=== PATIENT | female | born 1985 | race Two or more races ===

== ENCOUNTER 2024-10-07 03:43 | Emergency (ER) | payer MEDICAID, SELFPAY ==
[2024-10-07 03:45] VITALS: BMI 34.3
[2024-10-07 03:57] VITALS: BP 184/106; PULSE 99; RESP 17; TEMP 37.1; O2SAT 96
--- NOTE | 2024-10-07 04:09 | XR_ITS ---
Examination: CT abdomen and pelvis without contrast. Coronal 3-D reconstructions. Sagittal 2-D reconstructions. Date and time of exam:October 07, 2024 0734 hours INDICATIONS: Epigastric pain radiating to the right upper abdomen beginning 2 days ago COMPARISON: November 10, 2015 CTDI: vol (mGy): 19.9 DLP: (mGycm): 1179 Technique: Axial images of the abdomen have been obtained, 3 mm slice thickness Intravenous contrast material has not been administered. Low dose protocols were performed. One or more of the following dose reduction techniques were used; automated exposure control, adjustment of the mA and/or KV according to patient size, use of iterative reconstruction technique. Findings: No focal liver or splenic lesion Absent gallbladder No pancreatic mass No renal or ureteral calculi, no hydronephrosis Stable 16 mm mass with calcified rim pericecal Normal appendix Acute diverticulitis distal descending colon and sigmoid colon No peridiverticular abscess No pelvic mass Bladder intact IMPRESSION: Acute diverticulitis distal descending colon and sigmoid colon, no peridiverticular abscess
--- NOTE | 2024-10-07 04:15 | EKG_ITS ---
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
--- NOTE | 2024-10-07 04:15 | PD.EDRME ---
Rapid Medical Screening Exam RME Arrival date/time: 10/07/24 03:43 Chief Complaint: Abdominal Pain Time Seen by Provider: 10/07/24 03:54 Vital signs: Vital Signs Temperature 98.8 F 10/07/24 03:57 Pulse Rate 99 10/07/24 03:57 Respiratory Rate 17 10/07/24 03:57 Blood Pressure 184/106 H 10/07/24 03:57 Pulse Oximetry (%) 96 10/07/24 03:57 Oxygen Delivery Method Room Air 10/07/24 03:57 Vital signs reviewed by provider: Yes RME Narrative: 31-year-old female with remote history of cholecystitis presents for evaluation of sharp, constant, right upper quadrant pain x 2 days. Patient endorses x 1 episode of diarrhea and subjective fever.
[2024-10-07] MEDS: MORPHINE SULF INJ 10 MG/ML VIAL 4 MG IVP ×2 (04:54→13:03)
[2024-10-07] MEDS: SODIUM CHLORIDE 0.9% 1000 ML 1,000 ML 999 ML IV (04:55)
[2024-10-07 05:02] VITALS: BP 132/82; PULSE 98; RESP 19; TEMP 36.7; O2SAT 99
[2024-10-07 05:09] LABS: Basophils % (Auto) 0 % (0-2.5); Eosinophils # (Auto) 0.1 Thou/mm3 (0.0-0.5); Eosinophils % (Auto) 1 % (0-10); Hematocrit 35.3 % (36.0-46.0); Hemoglobin 11.2 g/dL (12.0-16.0); Immature Granulocytes % (Auto) 0 % (0-0); Immature Granulocytes Auto 0.04 Thou/mm3 (0.00-0.00); Lymphocytes # (Auto) 2.3 Thou/mm3 (1.0-4.8); Lymphocytes % (Auto) 20 % (10-50); Mean Corpuscular HGB Conc 31.7 g/dl (31.0-37.0); Mean Corpuscular Hemoglobin 26.2 pg (25.0-35.0); Mean Corpuscular Volume 83 fL (80-100); Monocytes # (Auto) 0.7 Thou/mm3 (0.0-0.8); Monocytes % (Auto) 6 % (0-12); Neutrophils # (Auto) 8.5 Thou/mm3 (1.8-7.7); Neutrophils % (Auto) 73 % (37-80); Nucleated Red Blood Cell % 0 /100 WBC (0); Platelet Count 335 Thou/mm3 (140-440); RDW Standard Deviation 43.1 fL (36.4-46.3); Red Blood Count 4.27 Miln/mm3 (4.00-5.20); White Blood Count 11.7 Thou/mm3 (3.6-11.0)
--- NOTE | 2024-10-07 05:23 | EDNOTE_ITS ---
ED Abdominal Pain RME/HPI General Chief Complaint: Abdominal Pain Stated complaint: LOWER ABD PAIN RADIATING TO UPPER ABD Time seen by provider: 10/07/24 03:54 Arrival date/time: 10/07/24 03:43 Limitations: no limitations RME / HPI RME / HPI narrative: 31-year-old female with remote history of cholecystitis presents for evaluation of sharp, constant, right upper quadrant pain x 2 days. Patient endorses x 1 episode of diarrhea and subjective fever. Patient endorses intermittent right sided chest wall pain and shortness of breath. Patient reports that the onset of her symptoms was spontaneous. Denies postprandial worsening of symptoms. Denies history of similar symptoms. Denies known sick contacts and recent travel. LNMP x1 month ago. Related Data Previous Rx's ?Medication ?Instructions ?Recorded albuterol sulfate 90 mcg/actuation 2 puff inhalation Q ID #8.5 grams 04/06/21 aerosol inhaler azithromycin 250 mg tablet See Rx Instructions PO .COM PLEX #6 04/06/21 tabs albuterol sulfate 90 mcg/actuation 2 puff inhalation Q ID PRN 05/19/22 aerosol inhaler shortness of breath or wheez ing #8.5 grams albuterol sulfate 90 mcg/actuation 2 inh inhalation Q6 H PRN shortness 07/17/23 breath activated powder inhaler of breath or wheezing #1 ea Allergies Allergy/AdvReac Type Severity Reaction Status Date / Time No Known Allergies Allergy Verified 10/07/24 03:45 Review of Systems Constitutional Constitutional: Denies chills, Denies excessive sweating, Denies fatigue, Denies fever(s) and Denies headache(s) ENT Ears, Nose, Mouth, and Throat: Denies dizziness, Denies headache(s) and Denies neck pain Cardiovascular Cardiovascular: Denies chest pain, Denies diaphoresis and Denies dyspnea Respiratory Respiratory: Denies cough, Denies dyspnea and Denies wheezing Gastrointestinal Gastrointestinal: Reports abdominal pain, Denies coffee ground emesis, Denies constipation, Reports diarrhea, Denies hematochezia, Denies melena, Denies nausea and Denies vomiting Genitourinary Genitourinary: Denies abnormal vaginal bleeding Musculoskeletal Musculoskeletal: Denies back pain and Denies neck pain Integumentary/Breasts Skin/Breast: Denies rash Neurologic Neurologic: Denies dizziness and Denies headache(s) Endocrine Endocrine: Denies excessive sweating and Denies fatigue Allergic/Immunologic Allergic/Immunologic: Denies wheezing Past Medical History Past Medical History CARDIAC: Negative Congestive Heart Failure RESPIRATORY: Negative Chronic Obstructive Pulmonary Disease (COPD) GENITOURINARY: Negative Renal Disease ENDOCRINE: Negative Diabetes Mellitus Type 1 or Diabetes Mellitus Type 2 PSYCHO/SOCIAL: Positive Anxiety (PANIC DISORDER) Social History SMOKING STATUS: Never smoker ED Exam General Limitations: Present no limitations General appearance: Present in distress Head Head exam: Present atraumatic and normocephalic Eye Eye exam: Present normal appearance and EOMI; Absent scleral icterus ENT ENT exam: Present normal oropharynx and mucous membranes moist Neck Neck exam: Present normal inspection and full ROM Chest Chest inspection: Present normal inspection and symmetric chest wall rise Respiratory Respiratory exam: Present normal lung sounds bilaterally; Absent respiratory distress or wheezes Cardiovascular Cardiovascular exam: Present tachycardia Abdominal Exam Abdominal exam: Present soft, tenderness and guarding; Absent distention, rebound or rigidity Abdominal tenderness: Present diffuse Rectal Exam Rectal exam: Present deferred Extremities Exam Extremities exam: Present normal inspection and full ROM Back Exam Back exam: Present normal inspection and full ROM Psychiatric Psychiatric exam: Present anxious Skin Skin exam: Present warm, dry and normal color Course Quality Measures none Orders Category Date Time Status EKG (ED ONLY) *Do not use* NOW Care 10/07/24 04:15 Completed Insert IV NOW Care 10/07/24 04:09 Active Straight [In and Out Catheter] X1 Care 10/07/24 05:[address] abdomen pelvis wo con Stat Exams 10/07/24 04:09 Ordered EKG (ED Only) Stat Exams 10/07/24 04:15 Draft US gall bladder Stat Exams 10/07/24 05:39 Ordered US transvaginal Stat Exams 10/07/24 05:39 Ordered CBC Stat Lab 10/07/24 04:39 Completed CMP [Comprehensive Metabolic Panel] Stat Lab 10/07/24 04:39 Completed HCG Qualitative,Urine Stat Lab 10/07/24 04:09 Ordered HCG,Qualitative Serum Stat Lab 10/07/24 05:40 Ordered Lipase Stat Lab 10/07/24 04:39 Completed Troponin I Stat Lab 10/07/24 04:39 Completed UA, C/S IF [Urinalysis, C/S if Indicated] Stat Lab 10/07/24 04:09 Ordered Morphine Inj Med 10/07/24 04:12 Discontinued 4 mg IVP X1 ONE Sodium Chloride 0.9% 1000 ml [Ns] 1,000 ml Med 10/07/24 04:47 Active IV 999 mls/hr Reevaluation(s) Reevaluation #1: At 535 the care of this patient was transferred to Dr. Hassan. Pending CT and lab reports at the time of transfer of care. Vital Signs Vital signs: Vital Signs Temperature 98.8 F 10/07/24 03:57 Pulse Rate 99 10/07/24 03:57 Respiratory Rate 17 10/07/24 03:57 Blood Pressure 184/106 H 10/07/24 03:57 Pulse Oximetry (%) 96 10/07/24 03:57 Oxygen Delivery Method Room Air 10/07/24 03:57 Pulse ox 98%. Abdominal Pain MDM Patient data External records reviewed:: [facility] previous records Clinical information provided by:: patient and family Social determinants that could affect healthcare access:: mental health Patient has the following chronic illnesses:: Anxiety, depression. How is presenting disease/condition affected by chronic disease/condition?: uneffected by Evaluation data The following diagnostics were reviewed and interpreted by me:: lab results and radiology exam(s) Lab and/or radiology exams considered but not ordered:: Workup ordered Interpretation Summary: Pending results of transfer of care. Medications / Prescriptions Medications or Prescriptions considered but not ordered:: Rx given. Medication administrations:: Medication Administration History Sodium Chloride (Ns) 1,000 mls @ 999 mls/hr IV .Q1H1M ONE Stop: 10/07/24 05:47 Last Admin: 10/07/24 04:55 Dose: 999 mls/hr Documented By: JOB Discontinued Medications Morphine Sulfate (Morphine Sulf Inj 10 Mg/Ml Vial) 4 mg IVP X1 ONE Stop: 10/07/24 04:13 Last Admin: 10/07/24 04:54 Dose: 4 mg Documented By: EE Rx given. Consultations Consultation(s) initiated? (list below): No Diagnosis Differential diagnosis abdominal pain: abdominal pain, acute appendicitis, diverticulitis, gastroenteritis, pancreatitis and small bowel obstruction Most likely diagnosis given after review of the tests above:: abdominal pain Admission Indicated Admission indicated?: not indicated Admission Request Was there a request for admission?: No Disposition Plan Disposition Plan: other (specify) (Transfer of care to Dr. Hassan at 0535. ) Discharge Plan Plan Patient Disposition: Admit Acute Care w/in Hospital Disposition Comment: pt care transferred Dr. Hassan at 0535 on 10/07/2024 Prescriptions/Referrals Prescriptions/Med Rec: No Action azithromycin 250 mg tablet See Rx Instructions .ROUTE .COMPLEX Qty: 6 0RF Rx Instructions: take 500 mg today (day 1), then 250 mg for 4 days (days 2-5) albuterol sulfate 90 mcg/actuation HFA aerosol inhaler 2 puff inhalation QID Qty: 8.5 0RF albuterol sulfate 90 mcg/actuation HFA aerosol inhaler 2 puff inhalation QID PRN (Reason: shortness of breath or wheezing) Qty: 8.5 0RF albuterol sulfate 90 mcg/actuation aerosol powdr breath activated 2 inh inhalation Q6H PRN (Reason: shortness of breath or wheezing) Qty: 1 0RF Referrals: Jefry Guevara PA-C [Primary Care Provider] - In 1 week Problem List Clinical Impression: Abdominal pain Patient/Caregiver Discharge Instructions Education Materials: Abdominal Pain Print Language: Bengali Stand Alone Forms: Edith Award Info., Patient Portal Info Letter Attestation Attestation At 6 AM , the care of the patient was transferred to Dr. Araiza with diagnostics pending. Mahendra Hassan MD
[2024-10-07 05:31] LABS: Alanine Aminotransferase 12 U/L (10-49); Albumin, Serum 4.3 gm/dL (3.5-5.0); Albumin/Globulin Ratio 1.4 (1.2-2.2); Alkaline Phosphatase 105 U/L (46-116); Anion Gap 9 (7-16); Aspartate Amino Transferase 13 U/L (0-34); BUN/Creatinine Ratio 16 Ratio (12-20); Bilirubin,Total 0.5 mg/dL (0.3-1.2); Blood Urea Nitrogen 13 mg/dL (9-23); Calcium 9.3 mg/dL (8.3-10.6); Calcium (Corrected) 9.3 mg/dL (8.5-10.1); Carbon Dioxide 25.5 mMol/L (20.0-31.0); Chloride 103 mMol/L (98-107); Creatinine (Component) 0.8 mg/dL (0.6-1.3); Glucose 104 mg/dL (74-106); Lipase 35 U/L (12-53); Osmolality,Calculated 273 (275-295); Potassium 3.9 mMol/L (3.4-5.1); Sodium 137 mMol/L (136-145); Total Protein 7.3 gm/dL (5.7-8.2); Troponin I < 0.002 ng/mL (0.0-0.045); eGFR > 60 See Note
--- NOTE | 2024-10-07 05:39 | XR_ITS ---
Examination: Abdomen sonogram, Limited Date and time of exam: October 17 0808 hours INDICATIONS: Right upper abdominal pain beginning 2 days ago Technique: Real-time springer scale transabdominal sonographic images of the upper abdomen obtained. Findings: Absent gallbladder Normal common bile duct 0.5 cm Pancreatic head 2.4 cm Liver 18.8 cm fatty infiltration Normal hepatopedal portal venous flow Patent IVC IMPRESSION: Absent gallbladder. Normal common bile duct Hepatomegaly, fatty liver
--- NOTE | 2024-10-07 06:09 | EDNOTE_ITS ---
Emergency Room Addendum <Yasmeen Carrero - Last Filed: 10/07/24 12:33> Addendum Narrative: 0600: Care assumed from Dr. Hassan, the previous shift emergency physician. Past medical, surgical, social and family history reviewed. Vitals and home medications reviewed. I will assume the care of the patient at this time. Please refer to the emergency department record for history and examination from initial visit.? Physical exam by me shows patient under no acute distress at this time. Reviewed CT images and agree with radiologist interpretation. Cipro, Flagyl IV ordered. 1215: Patient remains clinically stable throughout the emergency department visit. Re-assessment at the time of disposition demonstrates that the patient is in no acute distress. We reviewed all the results, analysis, and treatment plans. Patient is amenable to discharge. Strict return precautions were outlin ed. Patient was discharged in stable condition. Diagnoses: -Abdominal pain -Acute diverticulitis RADIOLOGY Procedure(s): CT abdomen pelvis wo [facility] Accession Number(s): [id number] cc: Jefry Guevara PA-C; Nikos Lopez PA-C; Arjun Buchanan MD~ Examination: CT abdomen and pelvis without contrast. Coronal 3-D reconstructions. Sagittal 2-D reconstructions. Date and time of exam:October 07, 2024 0734 hours INDICATIONS: Epigastric pain radiating to the right upper abdomen beginning 2 days ago COMPARISON: November 10, 2015 CTDI: vol (mGy): 19.9 DLP: (mGycm): 1179 Technique: Axial images of the abdomen have been obtained, 3 mm slice thickness Intravenous contrast material has not been administered. Low dose protocols were performed. One or more of the following dose reduction techniques were used; automated exposure control, adjustment of the mA and/or KV according to patient size, use of iterative reconstruction technique. Findings: No focal liver or splenic lesion Absent gallbladder No pancreatic mass No renal or ureteral calculi, no hydronephrosis Stable 16 mm mass with calcified rim pericecal Normal appendix Acute diverticulitis distal descending colon and sigmoid colon No peridiverticular abscess No pelvic mass Bladder intact IMPRESSION: Acute diverticulitis distal descending colon and sigmoid colon, no peridiverticular abscess Dictated By: Arjun Buchanan MD <Velvet Araiza MD - Last Filed: 10/07/24 10:43> Addendum Narrative: 0600: Care assumed from Dr. Hassan, the previous shift emergency physician. Past medical, surgical, social and family history reviewed. Vitals and home medications reviewed. I will assume the care of the patient at this time. Please refer to the emergency department record for history and examination from initial visit.? Physical exam by me shows patient under no acute distress at this time. Reviewed CT images and agree with radiologist interpretation Dhara Yoon IV ordered RADIOLOGY Procedure(s): CT abdomen pelvis wo [facility] Accession Number(s): [id number] cc: Jefry Guevara PA-C; Nikos Lopez PA-C; Arjun Buchanan MD~ Examination: CT abdomen and pelvis without contrast. Coronal 3-D reconstructions. Sagittal 2-D reconstructions. Date and time of exam:October 07, 2024 0734 hours INDICATIONS: Epigastric pain radiating to the right upper abdomen beginning 2 days ago COMPARISON: November 10, 2015 CTDI: vol (mGy): 19.9 DLP: (mGycm): 1179 Technique: Axial images of the abdomen have been obtained, 3 mm slice thickness Intravenous contrast material has not been administered. Low dose protocols were performed. One or more of the following dose reduction techniques were used; automated exposure control, adjustment of the mA and/or KV according to patient size, use of iterative reconstruction technique. Findings: No focal liver or splenic lesion Absent gallbladder No pancreatic mass No renal or ureteral calculi, no hydronephrosis Stable 16 mm mass with calcified rim pericecal Normal appendix Acute diverticulitis distal descending colon and sigmoid colon No peridiverticular abscess No pelvic mass Bladder intact
[2024-10-07 06:19] LABS: HCG,Qualitative Serum Negative
[2024-10-07 07:22] LABS: Collection Type, Urine Clean Catch
[2024-10-07 07:49] LABS: Bilirubin,Urine Negative (Negative); Blood,Urine Trace (Negative); Clarity,Urine Turbid (Clear/Hazy); Color,Urine Yellow (Lt Yel-Yel); Culture Indicated,Urine Yes; Glucose, Urine Negative (Negative); Hyaline Casts,Urine < 1 /hpf (0-1); Ketones,Urine Negative (Negative); Leukocyte Esterase,Urine Positive (Negative); Nitrite,Urine Negative (Negative); PH,Urine 5.5 (5.0-7.0); Protein,Urine Trace (Neg - Trace); RBC,Urine 49 /hpf (0-3); Specific Gravity,Urine 1.032 (1.001-1.035); Squamous Epithelial Cell,Urine 7 /hpf (0-5); Urobilinogen,Urine Negative mg/dL (0.0-1.0); WBC,Urine 38 /hpf (0-5)
[2024-10-07 07:55] VITALS: BP 134/91; PULSE 90; RESP 18; TEMP 36.7; O2SAT 98
[2024-10-07 07:59] LABS: HCG Qualitative,Urine Negative
--- NOTE | 2024-10-07 08:06 | XR_ITS ---
Examination: Pelvic ultrasound, transabdominal, complete Technique: Transabdominal ultrasound of the pelvis performed using grayscale imaging Date and time of exam: October 07, 2024 0813 hours INDICATIONS: Pelvic pain beginning 2 days ago FINDINGS: Uterus 10.3 cm endometrial stripe 1.6 cm No uterine mass or intrauterine gestation Right ovary 2.9 cm arterial flow Doppler venous obscured by bowel gas IMPRESSION: No uterine mass or intrauterine gestation
[2024-10-07 10:01] VITALS: BP 118/79; PULSE 87; RESP 18; TEMP 36.6; O2SAT 97
[2024-10-07 12:00] VITALS: BP 120/80; PULSE 80; RESP 18; TEMP 36.6; O2SAT 95
[2024-10-07] MEDS: metroNIDAZOLE/NS 500 MG IVPB 500 MG/100 ML BAG 200 MG IV (12:06)
[2024-10-07] MEDS: HYDROcodone/APAP 5/325 TABLET 1 TAB PO (12:06)
[2024-10-07] MEDS: CIPROFLOXACIN/D5w 400 MG IVPB 400 MG/200 ML BAG 200 MG IV (12:30)
== END 2024-10-07 13:38 | disposition admitted as inpatient to this hospital (09) ==
PROVIDERS: Emergency Medicine; Physician Assistant; Emergency Provider Emergency Medicine; PCP Family Medicine
DX: K57.32 Diverticulitis of large intestine without perforation or abscess without bleeding (principal)
CPT/HCPCS: 36415; 74176; 76705; 76856; 80053; 81001; 81025; 83690; 84484; 84703; 85025; 87086; 93005; 96361; 96365; 96367; 96375; 96376; 99284; J0744; J2270; J3490; J7030; A9270; J1836

== ENCOUNTER 2025-06-04 16:28 | Emergency (ER) | payer MEDICAID, SELFPAY ==
--- NOTE | 2025-06-04 17:24 | PC.NURSE ---
Pt did not answer when name was called in the lobby
--- NOTE | 2025-06-04 18:53 | PC.NURSE ---
PT DID NOT ANSWER WHEN CALLED 3 SEPARATE TIMES IN THE LOBBY AND OUTSIDE. (nax1@[phone] NAx2 @[phone] NAx3 @[phone]) PT ELOPED.
== END 2025-06-04 18:53 | disposition left against medical advice (07) ==
PROVIDERS: Emergency Provider Emergency Medicine
DX: Z53.21 Procedure and treatment not carried out due to patient leaving prior to being seen by health care provider (principal)
CPT/HCPCS: 99281

== ENCOUNTER 2025-06-15 05:24 | Emergency (ER) | payer MEDICAID, SELFPAY ==
[2025-06-15 05:25] VITALS: BMI 34.3
--- NOTE | 2025-06-15 05:34 | EKG_ITS ---
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
--- NOTE | 2025-06-15 05:34 | XR_ITS ---
EXAMINATION: PA chest single view TECHNIQUE: Upright PA chest single view Date and time: June 15, 2025, 0606 hours, comparison July 17, 2023 INDICATIONS: Cough and congestion shortness of breath today. FINDINGS: Normal heart size No lobar pneumonia. No pulmonary edema. Intact osseous structures IMPRESSION: No lobar pneumonia identified
--- NOTE | 2025-06-15 05:35 | PD.EDRME ---
Rapid Medical Screening Exam RME Arrival date/time: 06/15/25 05:24 This is a case of 40-year-old female with history of bronchitis came in in the emergency room due to cough nasal congestion for 3 days worsening of the symptoms now with shortness of breath and chest pain thus patient decided to sought consult here in the emergency room Chief Complaint: Flu Like Symptoms Time Seen by Provider: 06/15/25 05:34 Exam: Noted wheezing both lower lung field no crackles no rales no retraction no stridor normal rate regular rhythm normal no murmur Clinical Impression: Chest pain cough
[2025-06-15 05:56] LABS: Basophils # (Auto) 0.0 Thou/mm3 (0.0-0.2); Basophils % (Auto) 0 % (0-2.5); Eosinophils # (Auto) 0.4 Thou/mm3 (0.0-0.5); Eosinophils % (Auto) 5 % (0-10); Hematocrit 35.9 % (36.0-46.0); Hemoglobin 11.3 g/dL (12.0-16.0); Immature Granulocytes Auto 0.03 Thou/mm3 (0.00-0.00); Lymphocytes # (Auto) 2.7 Thou/mm3 (1.0-4.8); Lymphocytes % (Auto) 31 % (10-50); Mean Corpuscular HGB Conc 31.5 g/dl (31.0-37.0); Mean Corpuscular Hemoglobin 27.2 pg (25.0-35.0); Mean Corpuscular Volume 87 fL (80-100); Monocytes # (Auto) 0.6 Thou/mm3 (0.0-0.8); Monocytes % (Auto) 7 % (0-12); Neutrophils # (Auto) 5.0 Thou/mm3 (1.8-7.7); Neutrophils % (Auto) 57 % (37-80); Nucleated Red Blood Cell # 0.00 Thou/mm3 (0.00-0.00); Nucleated Red Blood Cell % 0 /100 WBC (0); Platelet Count 352 Thou/mm3 (140-440); RDW Standard Deviation 42.3 fL (36.4-46.3); Red Blood Count 4.15 Miln/mm3 (4.00-5.20); White Blood Count 8.8 Thou/mm3 (3.6-11.0)
[2025-06-15 06:05] VITALS: BP 153/117; PULSE 98; RESP 20; TEMP 36.8; O2SAT 98
[2025-06-15 06:11] LABS: B-Type Natriuretic Peptide < 20 pg/mL (0-100)
[2025-06-15 06:12] LABS: Alanine Aminotransferase 14 U/L (10-49); Albumin, Serum 4.7 gm/dL (3.5-5.0); Albumin/Globulin Ratio 1.6 (1.2-2.2); Alkaline Phosphatase 108 U/L (46-116); Anion Gap 9 (7-16); Aspartate Amino Transferase 12 U/L (0-34); BUN/Creatinine Ratio 19 Ratio (12-20); Bilirubin,Total 0.2 mg/dL (0.3-1.2); Blood Urea Nitrogen 15 mg/dL (9-23); Calcium 9.3 mg/dL (8.3-10.6); Calcium (Corrected) 9.3 mg/dL (8.5-10.1); Carbon Dioxide 28.5 mMol/L (20.0-31.0); Chloride 105 mMol/L (98-107); Creatinine (Component) 0.8 mg/dL (0.6-1.3); Estimated Creatinine Clearance 103.0 mL/min (>60); Globulin 2.9 gm/dL (2.3-3.5); Glucose 113 mg/dL (74-106); Osmolality,Calculated 284 (275-295); Potassium 4.0 mMol/L (3.4-5.1); Sodium 142 mMol/L (136-145); Total Protein 7.6 gm/dL (5.7-8.2); Troponin I < 0.002 ng/mL (0.0-0.045); eGFR > 60 See Note
[2025-06-15 06:14] VITALS: PULSE 109; RESP 22; O2SAT 99
[2025-06-15] MEDS: ALBUTEROL/IPRATROPIUM (Duoneb) RT SOL 3 ML NEBU INH (06:14)
--- NOTE | 2025-06-15 07:01 | PC.NURSE ---
@0658 - PT STATING WANTING TO LEAVE AMA; PER PT, I JUST WANT TO GO TO [place]. I DON'T WANT TO BE WAITING OUT HERE. PT ASKED IF ANYTHING ELSE CAN BE DONE TO HELP PERSUADE PT TO STAY; PER PT, NO, I'MJUST GONNA GO TO [place]. RISKS OF LEAVING AMA EXPLAINED TO PT. PT A&OX4, GCS 15. PT SIGNED AMA FORM AT THIS TIME. PT LEFT AMA.
--- NOTE | 2025-06-15 07:26 | EDNOTE_ITS ---
<Statement entered by Velvet Araiza MD - 06/15/25 17:50> As co-signing physician, I was present and available for consult prn. I concur with the plan and care as documented by the midlevel provider. Upper Respiratory Inf. RME/HPI General Chief Complaint: Flu Like Symptoms Stated Complaint: COUGH CONGESTION Time Seen by Provider: 06/15/25 05:34 Arrival date/time: 06/15/25 05:24 RME / HPI RME / HPI Narrative: 06/15/25 05:24 This is a case of 40-year-old female with history of bronchitis came in in the emergency room due to cough nasal congestion for 3 days worsening of the symptoms now with shortness of breath and chest pain thus patient decided to sought consult here in the emergency room Exam: Noted wheezing both lower lung field no crackles no rales no retraction no stridor normal rate regular rhythm normal no murmur Impression: Chest pain cough Related Data Previous Rx's ?Medication ?Instructions ?Recorded albuterol sulfate 90 mcg/actuation 2 puff inhalation Q ID #8.5 grams 04/06/21 aerosol inhaler azithromycin 250 mg tablet See Rx Instructions PO .COM PLEX #6 04/06/21 tabs albuterol sulfate 90 mcg/actuation 2 puff inhalation Q ID PRN 05/19/22 aerosol inhaler shortness of breath or wheez ing #8.5 grams albuterol sulfate 90 mcg/actuation 2 inh inhalation Q6 H PRN shortness 07/17/23 breath activated powder inhaler of breath or wheezing #1 ea ciprofloxacin HCl 500 mg tablet 500 mg PO BID #20 tabs 10/07/24 (Cipro) metronidazole 500 mg tablet 500 mg PO TID #21 tabs 01/24 Allergies Allergy/AdvReac Type Severity Reaction Status Date / Time No Known Allergies Allergy Verified 06/15/25 05:28 Review of Systems Review of Systems Systems Reviewed: All systems reviewed, normal except as documented ED Exam Narrative Physical exam: Constitutional: Patient alert and oriented. Well appearing. No acute distress. Not toxic appearing. Head: Normocephalic, atraumatic. Eyes: Periorbital regions bilaterally normal to inspection. Conjunctiva clear bilaterally. Sclera anicteric bilaterally. Pupils equal, round, reactive to light bilaterally. Extraocular movements intact bilaterally. Ears: External ears normal to inspection bilaterally. No mastoid tenderness bilaterally. EAC without edema or exudate bilaterally. TMs without erythema or bulging. Mouth/Throat: Positive mild erythema of oropharynx mucous membranes moist. No stridor or muffled voice. Uvula midline. Rise and fall of soft palate normal. No tonsillar edema or exudate. No peritonsillar fullness. No trismus. Handling secretions without difficulty. Airway widely patent. Neck: Supple. Trachea midline. No JVD. No nuchal rigidity. No midline tenderness or step-offs. Normal range of motion. Respiratory: Normal effort. No accessory muscle use or respiratory distress. Positive scant expiratory wheezing bilaterally. Positive left midclavicular line chest wall tenderness to palpation. Cardiovascular: RRR. Normal S1/S2. No murmurs or rubs. Radial pulses intact bilaterally. Abdomen: Soft. Non-distended. Non-tender throughout. No pulsatile mass. No guarding or rebound. Negative Cates?s sign. Negative McBurney?s point tenderness. Negative Rovsing?s. Back: No midline tenderness or step-offs. No CVA tenderness to palpation bilaterally. Upper Extremities: No gross deformities. Lower Extremities: No gross deformities. No edema or calf tenderness. Neuro: Speech normal. No gross motor or sensory deficits to upper or lower extremities bilaterally. GCS 15. CN II?XII grossly intact. Skin: Warm, dry, normal color. Psych: Normal affect. Cooperative. Normal insight. Course Quality Measures none Orders Category Date Time Status Bedside COVID-19 Antigen Test NOW Care 06/15/25 05:34 Completed Bedside Influenza A&B Antigen Test NOW Care 06/15/25 05:35 Completed EKG (ED ONLY) *Do not use* NOW Care 06/15/25 05:34 Completed EKG (ED Only) Stat Exams 06/15/25 05:34 Draft XR chest 1V Stat Exams 06/15/25 05:34 Completed BNP [B-Type Natriuretic Peptide] Stat Lab 06/15/25 05:48 Completed CBC Stat Lab 06/15/25 05:48 Completed CMP [Comprehensive Metabolic Panel] Stat Lab 06/15/25 05:48 Completed Troponin I Stat Lab 06/15/25 05:48 Completed Albuterol/Ipratr Rt Yenny [Duoneb Rt Yenny] Med 06/15/25 05:34 Discontinued 3 ml INH X1 ONE dexAMETHasone INJ [Decadron Inj] Med 06/15/25 05:34 Discontinued 10 mg IM X1 ONE Vital Signs Vital signs: Vital Signs Temperature 98.2 F 06/15/25 06:05 Pulse Rate 98 06/15/25 06:05 Respiratory Rate 20 06/15/25 06:05 Blood Pressure 153/117 H 06/15/25 06:05 Pulse Oximetry (%) 98 06/15/25 06:05 Oxygen Delivery Method Room Air 06/15/25 06:05 Upper Respiratory Infection MDM Narrative MDM Narrative:: 40-year-old female with a past medical history of bronchitis, presented to the ER complaining of cough congestion sore throat fever along with chest tightness and shortness of breath for 3 days. Lab work notable for mild anemia with hemoglobin of 11.3, glucose minimally elevated 113 however BNP and troponin both negative and remainder of CBC and CBC without severe metabolic or electrolyte abnormality EKG notable for sinus tachycardia with poor R wave progression nonspecific ST abnormalities with a rate of [address] elevation this was at 5:58 AM today June 15, 2025 Chest x-ray without a lobar pneumonia Patient was given dexamethasone and a breathing treatment which was ordered by the previous provider and she subsequently eloped after the treatment Patient data External records reviewed:: [facility] previous records Clinical information provided by:: patient Social determinants that could affect healthcare access:: none Patient has the following chronic illnesses:: As noted How is presenting disease/condition affected by chronic disease/condition?: exacerbated by Evaluation data The following diagnostics were reviewed and interpreted by me:: other (specify) Lab and/or radiology exams considered but not ordered:: Additional Labs and radiology considered, but not ordered as they were not clinically indicated at this time. Interpretation Summary: As noted Medications / Prescriptions Medications or Prescriptions considered but not ordered:: I ordered medications based on the patient?s clinical needs and assessment, as documented in the chart. For medications not prescribed, they were not indicated for the patient's current condition, and I determined they were unnecessary at this time to avoid potential risks or complications. Medication administrations:: Medication Administration History Discontinued Medications Albuterol/Ipratropium (Albuterol/Ipratropium (Duoneb) Rt Yenny 3 Ml Nebu) 3 ml INH X1 ONE Stop: 06/15/25 05:35 Last Admin: 06/15/25 06:14 Dose: 3 ml Documented By: TP Dexamethasone Sodium Phosphate (Dexamethasone Sod Phos Inj 10 Mg/Ml Vial) 10 mg IM X1 ONE Stop: 06/15/25 05:35 Last Admin: 06/15/25 06:24 Dose: 10 mg Documented By: IAN As noted Consultations Consultation(s) initiated? (list below): No Diagnosis Upper Respiratory Differential Diagnosis: upper respiratory infection Most likely diagnosis given after review of the tests above:: Upper respiratory infection complicated by chest pain of unclear etiology as well as pharyngitis Admission Indicated Admission indicated?: not indicated Admission Request Was there a request for admission?: No Disposition Plan Disposition Plan: other (specify) Discharge Plan Plan Patient Disposition: Left Against Medical Advice Patient condition on transfer: Stable Prescriptions/Referrals Prescriptions/Med Rec: No Action azithromycin 250 mg tablet See Rx Instructions .ROUTE .COMPLEX Qty: 6 0RF Rx Instructions: take 500 mg today (day 1), then 250 mg for 4 days (days 2-5) albuterol sulfate 90 mcg/actuation HFA aerosol inhaler 2 puff inhalation QID Qty: 8.5 0RF ciprofloxacin HCl [Cipro] 500 mg tablet 500 mg PO BID Qty: 20 0RF metronidazole 500 mg tablet 500 mg PO TID Qty: 21 0RF albuterol sulfate 90 mcg/actuation HFA aerosol inhaler 2 puff inhalation QID PRN (Reason: shortness of breath or wheezing) Qty: 8.5 0RF albuterol sulfate 90 mcg/actuation aerosol powdr breath activated 2 inh inhalation Q6H PRN (Reason: shortness of breath or wheezing) Qty: 1 0RF Referrals: Jefry Guevara PA-C [Primary Care Provider] - In 1 week Problem List Clinical Impression: Upper respiratory infection, Chest pain Patient/Caregiver Discharge Instructions Print Language: Tajik
== END 2025-06-15 06:58 | disposition left against medical advice (07) ==
PROVIDERS: Nurse Practitioner Family; Emergency Provider Emergency Medicine; PCP Family Medicine
DX: J06.9 Acute upper respiratory infection, unspecified (principal); R00.0 Tachycardia, unspecified
CPT/HCPCS: 36415; 71045; 80053; 81001; 81025; 83880; 84484; 85025; 87502; 87635; 93005; 94640; 96372; 99284; A9270; J1100